=== PATIENT | female | born 1965 | race Two or more races ===

== ENCOUNTER 2020-10-03 16:59 | Emergency (ER) | payer OTHER ==
[~2020-10-03] VITALS: Ht 170.2 cm; Wt 64.4 kg
[2020-10-03] MEDS ORDERED: WELLBUTRIN SR150 MG (17:22)
[2020-10-03] MEDS ORDERED: KEFLEX750 MG PO (20:43)
== END 2020-10-03 21:32 | disposition home or self-care (01) ==
LOC: ER 16:59
DX: S80.01XA Contusion of right knee, initial encounter (principal); W22.8XXA Striking against or struck by other objects, initial encounter; Y93.89 Activity, other specified; Y92.89 Other specified places as the place of occurrence of the external cause; Y99.8 Other external cause status

== ENCOUNTER → 2020-11-25 08:18 | Outpatient (CLI) | payer OTHER ==
[~2020-11-25 08:18] MED LIST: KEFLEX750 MG PO; WELLBUTRIN SR150 MG
== END | disposition home or self-care (01) ==
LOC: LAB 08:18
PROVIDERS: ATTEND Orthopaedic Surgery
DX: E55.9 Vitamin D deficiency, unspecified (principal); M85.9 Disorder of bone density and structure, unspecified; E56.1 Deficiency of vitamin K

== ENCOUNTER 2022-12-15 11:15 | Day surgery (SDC) | payer OTHER ==
[~2022-12-15] VITALS: Ht 170.2 cm; Wt 64.4 kg
[~2022-12-15 11:15] MED LIST changes: +PAXIL PO; +VYVANSE40 MG PO
[2022-12-15] MEDS ORDERED: MORGIDOX100 MG PO (17:29)
[2022-12-15] MEDS ORDERED: TRAM1TAB98 PO (17:30)
== END 2022-12-15 21:15 | disposition home or self-care (01) ==
LOC: CIR.AMB 11:15
PROVIDERS: ATTEND Obstetrics & Gynecology
DX: N93.8 Other specified abnormal uterine and vaginal bleeding (principal); N84.0 Polyp of corpus uteri; N92.1 Excessive and frequent menstruation with irregular cycle; D25.0 Submucous leiomyoma of uterus; Z88.6 Allergy status to analgesic agent; Z20.822 Contact with and (suspected) exposure to COVID-19